=== PATIENT | male | born 1970 | race Hispanic/Latino ===

== ENCOUNTER 2022-09-04 09:13 | Inpatient (IN) | payer SELFPAY ==
[~2022-09-04] VITALS: Ht 193 cm; Wt 149.9 kg
[2022-09-04] MEDS ORDERED: METHYLPREDNISOLONE SOD SUCC 125 MG/2ML VIAL IV STA (09:31)
[2022-09-04] MEDS ORDERED: METOPROLOL TARTRATE 25 MG TAB PO ONE (09:45)
[2022-09-04 10:06] LABS: BASOPHILS % 0.3 % (0.0-1.0); EOSINOPHILS # (AUTO) 0.2 (0.0-0.4); EOSINOPHILS % 2.1 % (0.0-6.0); HEMOGLOBIN 16.5 g/dL (14.0-18.0); LYMPHOCYTES # (AUTO) 2.2 (1.0-3.2); LYMPHOCYTES % 19.5 % (18.0-39.1); MEAN CORPUSCULAR HEMOGLOBIN 31.2 pg (28-32); MEAN CORPUSCULAR HGB CONC 32.4 g/dL (31-35); MEAN CORPUSCULAR VOLUME 96.4 fL (81-99); MONOCYTES % 8.6 % (4.4-11.3); NEUTROPHILS # (AUTO) 7.7 (2.1-6.9); NEUTROPHILS % 68.3 % (38.7-80.0); PLATELET COUNT 293 x10e3/uL (140-360); RED BLOOD COUNT 5.29 x10e6/uL (4.3-5.7)
[2022-09-04 10:13] LABS: INR 0.96
[2022-09-04 10:14] LABS: PARTIAL THROMBOPLASTIN TIME 28.4 seconds (23.8-35.5)
[2022-09-04 10:17] LABS: ALBUMIN 3.6 g/dL (3.5-5.0); ANION GAP 14.3 mmol/L (8-16); CALCIUM 9.5 mg/dL (8.4-10.2); CREATININE, SERUM 0.89 mg/dL (0.72-1.25); POTASSIUM 4.3 mmol/L (3.5-5.1)
[2022-09-04 10:23] LABS: CREATINE KINASE MB 1.9 ng/mL (0-5.0)
[2022-09-04] MEDS ORDERED: Morphine 4mg INJECTION 4 MG/ML INJ IV STA (10:29)
[2022-09-04] MEDS ORDERED: ONDANSETRON HCL INJ 2MG/ML 2ML 2 MG/ML VIAL IV STA (10:29)
[2022-09-04] MEDS ORDERED: ALBUTEROL/IPRATROPIUM 3 ML NEB NEB ONE (10:30)
[2022-09-04] MEDS ORDERED: IOPAMIDOL 370 MG/ML 100 ML INFUS..BTL INJ ONE (10:48)
[2022-09-04] MEDS ORDERED: Morphine 4mg INJECTION 4 MG/ML INJ IV PRN ×2 (12:00→16:00)
[2022-09-04] MEDS ORDERED: ONDANSETRON HCL INJ 2MG/ML 2ML 2 MG/ML VIAL IV PRN ×2 (12:00→14:00)
[2022-09-04] MEDS: METOPROLOL TARTRATE 25 MG TAB PO SCH ×2 (12:37→21:16)
[2022-09-04] MEDS ORDERED: BENZONATATE 100 MG CAP PO PRN (14:00)
[2022-09-04] MEDS ORDERED: DIPHENHYDRAMINE HCL 25 MG CAP PO PRN (14:00)
[2022-09-04] MEDS ORDERED: POTASSIUM CHLORIDE 20 MEQ TAB CR PO PRN (14:00)
[2022-09-04] MEDS ORDERED: DEXTROSE 50% SYRINGE 50 ML IV PRN (14:00)
[2022-09-04] MEDS ORDERED: ACETAMINOPHEN 325 MG TAB PO PRN (14:00)
[2022-09-04] MEDS ORDERED: ALBUTEROL/IPRATROPIUM 3 ML NEB NEB PRN (14:00)
[2022-09-04] MEDS ORDERED: DOCUSATE SODIUM 100 MG CAP PO PRN (14:00)
[2022-09-04] MEDS ORDERED: HYDRALAZINE HCL 20 MG/ML VIAL IV PRN (14:00)
[2022-09-04] MEDS ORDERED: MELATONIN 5 MG TABLET PO PRN (14:00)
[2022-09-04] MEDS ORDERED: SIMETHICONE 80 MG CHEW PO PRN (14:00)
[2022-09-04] MEDS ORDERED: LIDOCAINE 4% PATCH TP PRN (14:00)
[2022-09-04] MEDS ORDERED: HYDROCODONE/APAP 5MG-325MG TAB PO PRN (14:15)
[2022-09-04] MEDS: METHYLPREDNISOLONE SOD SUCC 40 MG/ML VIAL 1ML IV SCH ×2 (15:00→21:17)
[2022-09-04 15:03] LABS: CLARITY,URINE CLOUDY (CLEAR); COLOR,URINE YELLOW (YELLOW); KETONES,URINE NEGATIVE (NEGATIVE); LEUKOCYTE ESTERASE ,URINE NEGATIVE (NEGATIVE); NITRITE,URINE NEGATIVE (NEGATIVE); PROTEIN,URINE DIPSTICK >=300 (NEGATIVE); URINE UROBILINOGEN 0.2 mg/dL (0.2 - 1)
[2022-09-04] MEDS: ALBUTEROL/IPRATROPIUM 3 ML NEB NEB SCH ×2 (15:12→20:00)
[2022-09-04 15:14] LABS: BACTERIA,URINE FEW /HPF; EPITHELIAL CELLS,URINE FEW /LPF; RBC,URINE 0-5 /HPF (0-5); WBC,URINE (MAN) 0-5 /HPF (0-5)
[2022-09-04 15:15] LABS: MUCUS,URINE FEW (RARE)
[2022-09-04 16:30] LABS: CREATINE KINASE MB 1.6 ng/mL (0-5.0)
[2022-09-04 17:00] VITALS: BP 104/71
[2022-09-04] MEDS ORDERED: ENOXAPARIN SOD INJ 40 MG/0.4 ML SYR SC SCH (17:00)
[2022-09-04] MEDS ORDERED: METHYLPREDNISOLONE SOD SUCC 125 MG/2ML VIAL IV SCH (17:00)
[2022-09-04 17:09] VITALS: BP 140/102
[2022-09-04 18:03] VITALS: BP 140/102
[2022-09-04] MEDS ORDERED: [UNRECOGNIZED DRUG - REMARK] (18:34)
[2022-09-04 20:00] VITALS: BP_SYST 131; BP_SYST 99; BP_DIAS 61; BP_DIAS 91
[2022-09-04] MEDS ORDERED: SPIRONOLACTONE25 MG PO (21:12)
[2022-09-04] MEDS ORDERED: BUMETANIDE1 MG PO (21:12)
[2022-09-04] MEDS ORDERED: CYMBALTA30 MG (21:12)
[2022-09-04] MEDS ORDERED: METOPROLOL SUC100 MG PO (21:12)
[2022-09-04] MEDS ORDERED: NITROGLYCERIN 0.4 MG SUBL SL PRN (21:30)
[2022-09-04] MEDS ORDERED: METOPROLOL TARTRATE INJ 1 MG/ML VIAL IV PRN (21:30)
[2022-09-04] MEDS ORDERED: METOPROLOL TARTRATE INJ 1 MG/ML VIAL ONE (21:50)
[2022-09-04] MEDS ORDERED: NITROGLYCERIN 0.4 MG SUBL ONE (21:50)
[2022-09-05] VITALS (8 sets, daily range): BP systolic 98–145; BP diastolic 60–92
[2022-09-05 01:15] LABS: CREATINE KINASE MB 1.4 ng/mL (0-5.0)
[2022-09-05] MEDS: ALBUTEROL/IPRATROPIUM 3 ML NEB NEB SCH ×4 (01:30→10:40)
[2022-09-05 05:00] LABS: BASOPHILS % 0.1 % (0.0-1.0); HEMATOCRIT 45.5 % (38.2-49.6); HEMOGLOBIN 14.4 g/dL (14.0-18.0); LYMPHOCYTES # (AUTO) 0.9 (1.0-3.2); LYMPHOCYTES % 9.7 % (18.0-39.1); MEAN CORPUSCULAR HEMOGLOBIN 30.4 pg (28-32); MEAN CORPUSCULAR HGB CONC 31.6 g/dL (31-35); MEAN CORPUSCULAR VOLUME 96.2 fL (81-99); MONOCYTES # (AUTO) 0.2 (0.2-0.8); MONOCYTES % 1.9 % (4.4-11.3); NEUTROPHILS # (AUTO) 8.2 (2.1-6.9); NEUTROPHILS % 87.8 % (38.7-80.0); PLATELET COUNT 260 x10e3/uL (140-360); RED BLOOD COUNT 4.73 x10e6/uL (4.3-5.7); RED CELL DISTRIBUTION WIDTH 14.6 % (11.7-14.4)
[2022-09-05 05:29] LABS: ALBUMIN 3.1 g/dL (3.5-5.0); ANION GAP 14.9 mmol/L (8-16); CALCIUM 9.1 mg/dL (8.4-10.2); CHOL/HDL RATIO 2.9 (3.9-4.7); CREATININE, SERUM 0.87 mg/dL (0.72-1.25); POTASSIUM 4.9 mmol/L (3.5-5.1)
[2022-09-05 06:00] LABS: PHOSPHORUS 2.8 MG/DL (2.3-4.7)
[2022-09-05 06:21] LABS: THYROID STIMULATING HORMONE 0.376 uIU/mL (0.350-4.940)
[2022-09-05] MEDS: IPRATROPIUM BROMIDE 0.02% 2.5 ML NEB NEB PRN ×3 (07:00→14:50)
[2022-09-05] MEDS: ALBUTEROL SULF 0.083% NEB SOLN 3 ML NEB NEB PRN ×3 (07:00→14:50)
[2022-09-05] MEDS: PANTOPRAZOLE SOD 40 MG TABEC PO SCH (08:15)
[2022-09-05] MEDS: METOPROLOL TARTRATE 25 MG TAB PO SCH ×2 (08:15→22:33)
[2022-09-05] MEDS: METHYLPREDNISOLONE SOD SUCC 40 MG/ML VIAL 1ML IV SCH (08:15)
[2022-09-05] MEDS ORDERED: SODIUM CHLORIDE 0.9% 250ML 250 ML ONE ×2 (08:21→12:39)
[2022-09-05 08:33] LABS: CREATINE KINASE MB 1.7 ng/mL (0-5.0)
[2022-09-05] MEDS: FUROSEMIDE INJ 10 MG/ML 4 ML VIAL IV SCH ×2 (14:49→22:32)
[2022-09-05] MEDS: APIXABAN 5 MG TABLET PO SCH (17:16)
[2022-09-06] VITALS: BP 110/80
[2022-09-06 04:00] VITALS: BP 114/70
[2022-09-06 06:08] LABS: BASOPHILS % 0.1 % (0.0-1.0); HEMATOCRIT 46.6 % (38.2-49.6); HEMOGLOBIN 14.8 g/dL (14.0-18.0); LYMPHOCYTES # (AUTO) 1.3 (1.0-3.2); LYMPHOCYTES % 8.7 % (18.0-39.1); MEAN CORPUSCULAR HEMOGLOBIN 30.6 pg (28-32); MEAN CORPUSCULAR HGB CONC 31.8 g/dL (31-35); MEAN CORPUSCULAR VOLUME 96.5 fL (81-99); MONOCYTES % 6.8 % (4.4-11.3); NEUTROPHILS # (AUTO) 12.6 (2.1-6.9); PLATELET COUNT 274 x10e3/uL (140-360); RED BLOOD COUNT 4.83 x10e6/uL (4.3-5.7); RED CELL DISTRIBUTION WIDTH 14.8 % (11.7-14.4)
[2022-09-06] MEDS: FUROSEMIDE INJ 10 MG/ML 4 ML VIAL IV SCH (06:14)
[2022-09-06 06:40] LABS: ANION GAP 13.5 mmol/L (8-16); CREATININE, SERUM 0.82 mg/dL (0.72-1.25); POTASSIUM 4.5 mmol/L (3.5-5.1)
[2022-09-06 08:00] VITALS: BP 122/69
[2022-09-06 08:11] VITALS: BP 122/69
[2022-09-06] MEDS: PANTOPRAZOLE SOD 40 MG TABEC PO SCH (08:30)
[2022-09-06] MEDS: APIXABAN 5 MG TABLET PO SCH (09:21)
[2022-09-06] MEDS: METOPROLOL TARTRATE 25 MG TAB PO SCH (09:21)
[2022-09-06] MEDS ORDERED: ONDANSETRON HCL 4 MG ORAL DISINTEGRATING TAB SL PRN (10:15)
[2022-09-06 11:31] VITALS: BP 132/92
[2022-09-06] MEDS ORDERED: FUROSEMIDE INJ 10 MG/ML 4 ML VIAL IV SCH (14:00)
== END 2022-09-06 14:24 | disposition left against medical advice (07) | DRG 291 ==
LOC: ER 09:17 → ERHOLD 12:13 → MED/SURG2 16:42 → OBSVTOIN 09-05 14:17
PROVIDERS: ADMIT Internal Medicine; ATTEND Internal Medicine
DX: I11.0 Hypertensive heart disease with heart failure (principal); I50.41 Acute combined systolic (congestive) and diastolic (congestive) heart failure; D68.51 Activated protein C resistance; J20.9 Acute bronchitis, unspecified; I48.91 Unspecified atrial fibrillation; E66.01 Morbid (severe) obesity due to excess calories; I25.2 Old myocardial infarction; J44.9 Chronic obstructive pulmonary disease, unspecified; I44.7 Left bundle-branch block, unspecified; I25.10 Atherosclerotic heart disease of native coronary artery without angina pectoris; Z20.822 Contact with and (suspected) exposure to COVID-19; Z95.810 Presence of automatic (implantable) cardiac defibrillator; Z76.5 Malingerer [conscious simulation]; Z86.73 Personal history of transient ischemic attack (TIA), and cerebral infarction without residual deficits; Z87.891 Personal history of nicotine dependence; Z59.6 Low income
CPT/HCPCS: 36415; 71045; 71260; 80048; 80053; 80061; 81001; 82550; 82553; 83036; 83605; 83735; 83880; 84100; 84443; 84484; 85025; 85379; 85610; 85730; 87040; 87086; 93005; 93041; 93306; 94640; 94760; 94799; 99284; G0378; J0696; J1650; J1940; J2270; J2405; J2920; J2930; J7050; Q9967